=== PATIENT | female | born 1995 | race Caucasian/White ===

== ENCOUNTER 2020-12-11 21:01 | Emergency (ER) | payer MEDICAID ==
[~2020-12-11] VITALS: Ht 160 cm; Wt 122.7 kg
[2020-12-11 22:53] VITALS: BP 141/90; PULSE 91; TEMP 98.1
== END 2020-12-11 22:53 | disposition home or self-care (01) ==
LOC: COL.ER 21:01
DX: M25.562 Pain in left knee (principal); F17.210 Nicotine dependence, cigarettes, uncomplicated; X50.9XXA Other and unspecified overexertion or strenuous movements or postures, initial encounter